=== PATIENT | male | born 1995 | race Caucasian/White ===

== ENCOUNTER → 2018-08-02 09:23 | Outpatient (CLI) | payer BC, SELFPAY ==
--- NOTE | 2018-08-02 09:31 | RAD_ITS ---
CLINICAL HISTORY: Male, 23 years old. Left hip pain. PROCEDURE: ARTHROGRAM - LEFT HIP CONSENT: The procedure as well as the benefits and possible complications including infection and bleeding were explained to the patient. Informed consent was obtained. FLUOROSCOPY TIME (if supplied): (0:30) minutes/seconds. Injection Information: 10 cc of dilute Magnevist. Number of images obtained: 1 TECHNIQUE: (All elements of maximal sterile barrier technique followed, including US elements as applicable) The patient was in the supine position. The overlying skin was prepped and draped in the usual sterile fashion. Following local anesthetic application and under direct fluoroscopic guidance, a 22-gauge spinal needle was placed into the left hip joint. 2 cc of Isovue-300 was injected for confirmation. Following this, 10 cc of dilute Magnevist was injected. The patient tolerated the procedure well. RAD/Arthrogram Hip w/ MRI IMPRESSION: Successful left hip arthrogram with injection of 10 cc of dilute Magnevist. Electronically Signed: Jorge Roy MD at 10:37 EST Tel [phone], Service support ,
--- NOTE | 2018-08-02 09:42 | MRI_ITS ---
STUDY: MRI ARTHROGRAM LEFT HIP REASON FOR EXAM: Male, 23 years old. Left hip pain. Instability TECHNIQUE: Standardized fat and water weighted pulse sequences were obtained in all 3 orthogonal planes following the intra-articular administration of contrast. COMPARISON: None. FINDINGS: Normal hip joint without articular joint space narrowing. Normal acetabulum. Tear of the posterior acetabular labrum, series 8 images 01/12 through 04/14 Normal femoral head. Normal femoral neck and intratrochanteric region. Normal gluteus minimus, medius and iliopsoas tendons and distal insertions. There is iliopsoas bursitis with fluid and contrast, series 3 and 4 images through . There is no trochanteric bursitis. Normal superior and inferior pubic rami. Normal pubic symphysis. Normal ischial tuberosity. Normal origin of the hamstring tendons. Normal visualized iliac wing, sacroiliac joint, and sacral ala. Normal visualized soft tissue structures of the pelvis. MRI/Lower Ext/Jt Only/W Contrast IMPRESSION: Tear of the posterior acetabular labrum. Iliopsoas bursitis. No fracture or avascular necrosis. Electronically Signed: Sterling Charles MD at 12:23 EST , Service support ,
== END ==
PROVIDERS: Referring Provider Physician Assistant; Visit Provider Physician Assistant
DX: M25.552 Pain in left hip (principal)
CPT/HCPCS: 27093; 73722; 77002; Q9967; A9577